=== PATIENT | female | born 1975 | race Caucasian/White ===

== ENCOUNTER 2016-08-07 03:42 | Emergency (ER) | payer BC ==
[~2016-08-07] VITALS: Ht 157.5 cm; Wt 90.9 kg
[2016-08-07] MEDS ORDERED: ERYTHROMYC1 APPLICAT RIGHT EYE (05:19)
[2016-08-07] MEDS ORDERED: PERCOCET 5/31 TABLET PO (05:49)
[2016-08-07 05:54] VITALS: BP 145/104
== END 2016-08-07 05:54 | disposition home or self-care (01) ==
LOC: EXP 03:42 → EME 03:42 → EXP 05:54
DX: S05.01XA Injury of conjunctiva and corneal abrasion without foreign body, right eye, initial encounter (principal); W50.0XXA Accidental hit or strike by another person, initial encounter; Z91.040 Latex allergy status
CPT/HCPCS: 99281; 99283

== ENCOUNTER 2017-04-12 10:35 | Observation (INO) | payer BC ==
[~2017-04-12] VITALS: Ht 158.8 cm; Wt 91.2 kg
[~2017-04-12 10:35] MED LIST: ERYTHROMYC1 APPLICAT RIGHT EYE; PERCOCET 5/31 TABLET PO
[2017-04-12 11:03] LABS: HEMATOCRIT 43.1 % (36.0-46.0); MCH 29.4 PG (29.0-34.0); MCHC 34.8 G/DL (30.0-36.0); MCV 84.3 FL (83-99); MEAN PLAT.VOLUME 9.2 uM^3 (9.5-12.4); PLATELET COUNT 188 K/uL (156-360); RBC DIS.WIDTH-SD 36.6 % (39-53); RED BLOOD COUNT 5.11 M/uL (3.80-5.20); WHITE BLOOD COUNT 8.8 K/uL (4.1-10.2)
[2017-04-12 11:20] LABS: CHLORIDE 105 mEq/L (99-109); POTASSIUM 3.9 mEq/L (3.7-5.4); SODIUM 140 mEq/L (136-147)
[2017-04-12 11:22] LABS: GLUCOSE 96 mg/dL (70-99)
[2017-04-12 11:24] LABS: ANION GAP 12 MEQ/L (2-14); TOTAL BILIRUBIN 0.7 mg/dL (0.0-1.0)
[2017-04-12 11:26] LABS: ALKALINE PHOSPHATASE 95 IU/L (3-129); GFR ESTIMATE (CALCULATED) > 59 mL/min/
[2017-04-12 11:27] LABS: UREA NITROGEN (BUN) 9 mg/dL (9-23)
[2017-04-12 11:37] LABS: QUANTITATIVE HCG < 4.0 MIU/ML
[2017-04-12 12:28] LABS: ADD MIUA? YES; BILIRUBIN NEGATIVE; BLOOD MODERATE; COLOR YELLOW ((YELLOW)); GLUCOSE (STRIP) NEGATIVE; KETONES 20; LEUKOCYTES NEGATIVE; NITRITE NEGATIVE; PROTEIN (STRIP) NEGATIVE; SPECIFIC GRAVITY 1.012 (1.000-1.030); UROBILINOGEN 0.2 MG/DL (0.2-1.0)
[2017-04-12 12:40] LABS: BACTERIA RARE /HPF; EPITHELIAL CELLS RARE /HPF; MUCUS TRACE /LPF; RED BLOOD CELLS 0-5 /HPF (0-5); UCUL ADDED? NO; WHITE BLOOD CELLS 0-5 /HPF (0-5)
[2017-04-12 12:48] LABS: LIPASE 20 U/L (1.0-51.0)
[2017-04-12] MEDS ORDERED: RITALIN10 MG PO (14:24)
[2017-04-12] MEDS ORDERED: FOCALIN XR40 MG PO (14:25)
[2017-04-12] MEDS ORDERED: CYMBALTA20 MG PO (14:25)
[2017-04-12] MEDS ORDERED: SYNTHROID75 MCG PO (14:25)
[2017-04-12] MEDS ORDERED: AMBIEN5 MG PO (14:26)
[2017-04-12] MEDS ORDERED: FIORICET 50-301 EACH PO (14:26)
[2017-04-12] MEDS ORDERED: SINGULAIR10 MG PO (14:27)
[2017-04-12] MEDS ORDERED: VERAPAMIL HCL180 MG PO (14:27)
[2017-04-12] MEDS ORDERED: SYMBICORT60 INHALAT IH (14:27)
[2017-04-12] MEDS ORDERED: SPIRIVA18 MCG IH (14:28)
[2017-04-12] MEDS ORDERED: PROAIR HFA8.5 GM IH (14:28)
[2017-04-12] MEDS ORDERED: ZYRTEC10 M2 PO (14:28)
[2017-04-12 20:33] VITALS: BP 105/59
[2017-04-13 00:18] VITALS: BP 108/59
[2017-04-13 04:08] VITALS: BP 97/54
[2017-04-13 04:57] LABS: INTERNAL CONTROL VALID? YES
[2017-04-13 05:52] LABS: HEMATOCRIT 37.7 % (36.0-46.0); MCH 29.9 PG (29.0-34.0); MCHC 35.3 G/DL (30.0-36.0); MCV 84.7 FL (83-99); MEAN PLAT.VOLUME 9.1 uM^3 (9.5-12.4); PLATELET COUNT 188 K/uL (156-360); RBC DIS.WIDTH-CV 12.1 % (11.8-14.6); RBC DIS.WIDTH-SD 37.1 % (39-53); RED BLOOD COUNT 4.45 M/uL (3.80-5.20)
[2017-04-13 06:14] LABS: ALKALINE PHOSPHATASE 72 IU/L (3-129); ANION GAP 9 MEQ/L (2-14); CHLORIDE 105 MEQ/L (99-109); GFR ESTIMATE (CALCULATED) > 59 mL/min/; GLUCOSE 98 mg/dL (70-99); POTASSIUM 3.8 MEQ/L (3.7-5.4); SAMPLE HEMOLYSIS CHECK 0; SAMPLE ICTERIC CHECK 0; SAMPLE LIPEMIA CHECK 0; SODIUM 138 MEQ/L (136-147); TOTAL BILIRUBIN 0.5 MG/DL (0.0-1.0); UREA NITROGEN (BUN) 7 mg/dL (9-23)
[2017-04-13] MEDS ORDERED: METRONIDAZOLE500 MG PO (08:31)
[2017-04-13] MEDS ORDERED: CIPRO500 MG PO (08:31)
[2017-04-13 09:25] VITALS: BP 117/58
[2017-04-13 12:06] VITALS: BP 125/59
[2017-04-13] MEDS ORDERED: ZOFRAN4 MG PO (14:10)
== END 2017-04-13 14:59 | disposition home or self-care (01) ==
LOC: EME 10:35 → EDOF 14:45 → 5WEST 14:45 → ENRESERV 14:48 → 5WEST 20:21
PROVIDERS: Hospitalist
DX: R10.84 Generalized abdominal pain (principal); K52.9 Noninfective gastroenteritis and colitis, unspecified; E03.9 Hypothyroidism, unspecified; Z90.49 Acquired absence of other specified parts of digestive tract; I10 Essential (primary) hypertension; J45.909 Unspecified asthma, uncomplicated; Z91.040 Latex allergy status
CPT/HCPCS: 74177; 80053; 81003; 83630; 83690; 84702; 85027; 87040; 87177; 87329; 87506; 94640; 94640 76; 99202; 99281; 99285; G0378; J0744; J2270; J2405; J2765; J7030; S0028; S0030